=== PATIENT | female | born 1940 | race Caucasian/White ===

== ENCOUNTER 2018-12-18 11:12 | Outpatient (CLI) | payer OTHER | END 2018-12-18 11:19 | disposition home or self-care (01) | LOC: RX STUDY 11:12 | DX: R39.0 Extravasation of urine (principal) | CPT/HCPCS: 51600; 74430; Q9958 ==

== ENCOUNTER 2021-08-31 13:50 | Inpatient (IN) | payer OTHER ==
[~2021-08-31] VITALS: Ht 157.5 cm; Wt 71.7 kg
[2021-08-31] MEDS ORDERED: COZAAR100 MG PO (14:03)
[2021-08-31] MEDS ORDERED: GLIMEPIRIDE4 M1 PO (14:03)
[2021-08-31] MEDS ORDERED: CHILDREN'S ASPI81 MG PO (14:03)
[2021-08-31] MEDS ORDERED: FORTAMET500 MG PO (14:03)
[2021-08-31] MEDS ORDERED: AMLODIPINE-OLM1 EAC2 PO (14:03)
[2021-08-31] MEDS ORDERED: SYNTHROID100 MCG PO (14:04)
--- NOTE | 2021-08-31 14:18 | NUR ---
PACIENTE ALERTA Y ORIENTADA [place] DE [place] REFIERE QUE DESDE ANOCHE PRESENTA TOS CON FLEMA, FIEBRE Y FATIGA. SE REALIZA UN EKG Y SE LE MUESTRA A LA DRA. MONTEZ. SE MONITOREAN S/V Y SE UBICA EN FT.
--- NOTE | 2021-08-31 16:15 | NUR ---
PACIENTE EVALUADA POR DRA MONTEZ QUIEN ORDNEA [place] MEDICO. SE ORIENTA A PACIENTE SOBRE EL MISMO Y SE EJECUTAN ORDENES MEDICAS. PENDIENTE RESULTADOS PARA RE-EVALUACION MEDICA.
--- NOTE | 2021-08-31 19:20 | NUR ---
RICKS ORDENA MEDICAMENTO NO DISPONIBLE EN PIXYS. SE PIDE A SUPERVISION GENERAL MEDICAMENTO DE NITROFURANTION 100MGPO.
--- NOTE | 2021-08-31 20:08 | NUR ---
PACIENTE CONSULTADA CON MEDICINA INTERNA. DE UBICA EN OBSERVACION CAMA 10.
== END 2021-09-09 19:02 | disposition home or self-care (01) | DRG 690 ==
LOC: ER 13:50 → MEDI 23:07 → MEDJ 23:07 → MEDI 09-01 03:01
PROVIDERS: ADMIT Internal Medicine; ATTEND Internal Medicine
PROC: BW2110Z Computerized Tomography (CT Scan) of Abdomen and Pelvis using Low Osmolar Contrast, Unenhanced and Enhanced (ICD-10-PCS; principal; 2021-09-01)
PROC: 02HV33Z Insertion of Infusion Device into Superior Vena Cava, Percutaneous Approach (ICD-10-PCS; 2021-09-03)
DX: N39.0 Urinary tract infection, site not specified (principal); N20.1 Calculus of ureter; N20.0 Calculus of kidney; E86.0 Dehydration; K29.00 Acute gastritis without bleeding; E80.6 Other disorders of bilirubin metabolism; I10 Essential (primary) hypertension; F32.9 Major depressive disorder, single episode, unspecified; F43.23 Adjustment disorder with mixed anxiety and depressed mood; F43.29 Adjustment disorder with other symptoms; Z20.822 Contact with and (suspected) exposure to COVID-19; Z63.4 Disappearance and death of family member; E11.9 Type 2 diabetes mellitus without complications; Z79.4 Long term (current) use of insulin

== ENCOUNTER 2025-09-19 16:24 | Emergency (ER) | payer OTHER ==
[~2025-09-19] VITALS: Ht 157.5 cm; Wt 69.9 kg
[~2025-09-19 16:24] MED LIST: AMLODIPINE-OLM1 EAC2 PO; CHILDREN'S ASPI81 MG PO; COZAAR100 MG PO; FORTAMET500 MG PO; GLIMEPIRIDE4 M1 PO; SYNTHROID100 MCG PO
[2025-09-19] MEDS ORDERED: TOPROL XL50 M1 (16:33)
[2025-09-19] MEDS ORDERED: ACETAMINOPHEN 500 MG GEL..CAP PO ONE ×2 (17:26→17:30)
== END 2025-09-19 21:36 ==
LOC: ER 16:25
DX: S00.93XA Contusion of unspecified part of head, initial encounter (principal); S20.223A Contusion of bilateral back wall of thorax, initial encounter; W18.39XA Other fall on same level, initial encounter; Y93.89 Activity, other specified; Y92.018 Other place in single-family (private) house as the place of occurrence of the external cause; Y99.9 Unspecified external cause status; M51.369 Other intervertebral disc degeneration, lumbar region without mention of lumbar back pain or lower extremity pain; E11.9 Type 2 diabetes mellitus without complications; Z79.84 Long term (current) use of oral hypoglycemic drugs; I10 Essential (primary) hypertension; E03.9 Hypothyroidism, unspecified; Z88.0 Allergy status to penicillin; Z88.2 Allergy status to sulfonamides; Z88.8 Allergy status to other drugs, medicaments and biological substances; Z91.018 Allergy to other foods